=== PATIENT | male | born 1950 | race Two or more races ===

== ENCOUNTER 2020-03-10 06:20 | Day surgery (SDC) | payer OTHER ==
[~2020-03-10 06:20] MED LIST: JANUMET PO; LOSART PO
[2020-03-10] MEDS ORDERED: PERCOCET 5-3251 EACH PO (10:25)
[2020-03-10] MEDS ORDERED: COLACE100 MG PO (10:25)
== END 2020-03-10 15:35 | disposition home or self-care (01) ==
LOC: CIR.AMB 06:20
DX: K64.8 Other hemorrhoids (principal)